=== PATIENT | female | born 1990 | race Two or more races ===

== ENCOUNTER → 2021-05-15 | Outpatient (CLI) | payer OTHER ==
[~2021-05-15] MED LIST: IOPAMIDOL 300MG/ML 100 ML INFUS..BTL IV ONE
== END ==
LOC: DX 12:16
PROVIDERS: ATTEND Obstetrics & Gynecology
DX: N92.6 Irregular menstruation, unspecified (principal); E28.2 Polycystic ovarian syndrome; E03.9 Hypothyroidism, unspecified
CPT/HCPCS: 74740; 81025; Q9967